=== PATIENT | male | born 1945 | race Two or more races ===

== ENCOUNTER 2023-05-13 04:18 | Day surgery (SDC) | payer OTHER ==
[2023-05-09 09:44] VITALS: BMI 37.0
[2023-05-13 10:26] LABS: BASO % 0.9 % (0-2.0); EOS % 2.7 % (0-4.5); HEMATOCRIT 40.1 % (35.4-49); HEMOGLOBIN 13.6 GM/dL (11.7-16.9); LYMPH % 34.3 % (8-40); MCH 28.8 pg (25.7-33.7); MEAN CELL VOLUME 84.6 fl (80-96); MEAN PLT VOLUME 7.5 fl (7.5-11.1); MONO % 7.3 % (3.8-10.2); NEUT % 54.8 % (42.8-82.8); PLATELET COUNT 248 10^3/uL (134-434); RBC 4.73 M/mm3 (4.00-5.60); RDW 15.3 % (11.9-15.9)
[2023-05-13 10:44] LABS: POTASSIUM 3.7 mmol/L (3.5-5.1)
[2023-05-13 10:46] LABS: CALCIUM 9.2 mg/dL (8.5-10.1)
[2023-05-13 10:47] LABS: ALBUMIN 3.6 g/dl (3.4-5.0); BLOOD UREA NITROGEN 24.5 mg/dL (7-18)
[2023-05-13 10:50] LABS: CREATININE 1.4 mg/dL (0.55-1.3)
[2023-05-13 10:52] LABS: BILIRUBIN,TOTAL 1.3 mg/dL (0.2-1); TOT PROT 7.6 g/dl (6.4-8.2)
[2023-05-13] MEDS ORDERED: HEPARIN NA (PORCINE) 5,000 UNITS/ML 1ML VIAL ONE (12:36)
[2023-05-13] MEDS ORDERED: BUPIVACAINE HCL/PF 0.25% (2.5MG/ML) 10 ML VIAL ONE (12:36)
[2023-05-13] MEDS ORDERED: INDOCYANINE GREEN 25 MG/10 ML VIAL IVPUSH ONE (12:36)
[2023-05-13] MEDS ORDERED: ROCURONIUM BROMIDE 50 MG/5 ML SYRINGE ONE (13:15)
[2023-05-13] MEDS ORDERED: DEXAMETHASONE SOD PHOSPHATE 4 MG/1 ML VIAL ONE (13:16)
[2023-05-13] MEDS ORDERED: ONDANSETRON 4 MG/2 ML VIAL ONE (13:16)
[2023-05-13] MEDS ORDERED: PROPOFOL 40 ML ONE (13:16)
[2023-05-13] MEDS ORDERED: MIDAZOLAM HCL 2 MG/2 ML SINGLE DOSE VIAL ONE (13:16)
[2023-05-13] MEDS ORDERED: LIDOCAINE HCL/PF 2% SDV 5ML VIAL ONE ×2 (13:16)
[2023-05-13] MEDS ORDERED: SEVOFLURANE 250 ML BTL ONE (13:18)
[2023-05-13] MEDS ORDERED: SUGAMMADEX SODIUM 200 MG/2 ML VIAL ONE (13:26)
[2023-05-13] MEDS ORDERED: cefOXitin SODIUM 2 GM VIAL (RESTRICTED TO ID) IVPB ONE ×2 (13:49→13:57)
[2023-05-13] MEDS ORDERED: BUPIVACAINE HCL/PF 0.25% (2.5MG/ML) 10 ML VIAL IJ ONE ×2 (13:59→16:05)
[2023-05-13] MEDS ORDERED: oxyCODONE HCL 5 MG TABLET PO PRN ×2 (16:21)
[2023-05-13] MEDS ORDERED: PROMETHAZINE HCL 25 MG/1 ML VIAL IVPB PRN (16:21)
[2023-05-13] MEDS ORDERED: ONDANSETRON 4 MG/2 ML VIAL IVPUSH PRN (16:21)
[2023-05-13] MEDS ORDERED: ACETAMINOPHEN 1000 MG/100 ML BAG IVPB ONE (16:22)
[2023-05-13] MEDS ORDERED: LACTATED RINGERS SOLUTION 1,000 ML IV SCH (16:30)
[2023-05-13] MEDS ORDERED: oxyCODONE HCL 10 MG SUSTAINED ACTING TABLET ONE (18:04)
[2023-05-13 18:11] VITALS: TEMP 97.7
[2023-05-13 19:32] VITALS: RESP 20
[2023-05-13 19:35] VITALS: BP 135/75; PULSE 75
== END 2023-05-13 19:04 | disposition home or self-care (01) ==
LOC: JASU-SURG 04:18
PROVIDERS: ATTEND Surgery
PROC: 0FT44ZZ Resection of Gallbladder, Percutaneous Endoscopic Approach (ICD-10-PCS; principal; 2023-05-13 13:15)
PROC: 8E0W4CZ Robotic Assisted Procedure of Trunk Region, Percutaneous Endoscopic Approach (ICD-10-PCS; 2023-05-13 13:15)
DX: K82.8 Other specified diseases of gallbladder (principal)
CPT/HCPCS: 47562; S2900; 36415; 80053; 85025; 86850; 86900; 86901; 93005; 93010; 94760; J1644